=== PATIENT | male | born 1990 | race Caucasian/White ===

== ENCOUNTER 2016-11-19 10:44 | Inpatient (IN) | payer OTHER ==
[~2016-11-19] VITALS: Ht 172.7 cm; Wt 77.6 kg
[2016-11-19] MEDS: NICOTINE 21 MG/24 HR TRANSDERM SCH (09:00)
[2016-11-19] MEDS ORDERED: Flu Vaccine Quadrivalent 60 MCG/0.5 ML IM.VACC ONE (16:20)
[2016-11-19 16:21] VITALS: Ht 172.7 cm; Wt 77.6 kg
[2016-11-19] MEDS ORDERED: TRAZODONE 50 MG TAB PO PRN (16:25)
[2016-11-19] MEDS ORDERED: Ibuprofen 400 MG TAB PO PRN (16:25)
[2016-11-19] MEDS ORDERED: HALOPERIDOL 5 MG/ML VIAL IM PRN (16:25)
[2016-11-19] MEDS ORDERED: ALU/MAG/SIM 30 ML UDC PO PRN (16:25)
[2016-11-19] MEDS ORDERED: ACETAMINOPHEN 325 MG TAB PO PRN (16:25)
[2016-11-19] MEDS ORDERED: LORAZEPAM 2 MG TAB PO PRN (16:25)
[2016-11-19] MEDS ORDERED: DIPHENHYDRAMINE 50 MG/ML VIAL IM PRN (16:25)
[2016-11-19] MEDS ORDERED: DIPHENHYDRAMINE 50 MG CAP PO PRN (16:25)
[2016-11-19] MEDS ORDERED: MAG HYDROX 30 ML UDC PO PRN (16:25)
[2016-11-19] MEDS ORDERED: LORAZEPAM 2 MG/ML VIAL IM PRN (16:25)
[2016-11-19] MEDS ORDERED: HALOPERIDOL 5 MG TAB PO PRN (16:25)
[2016-11-19 20:55] VITALS: BP_SYST 136; RESP 18; TEMP 98.1
[2016-11-20] MEDS: MULTIVITS/MINERALS (THERAGRAN M) TAB PO SCH (10:10)
[2016-11-20] MEDS: BUPROPION SR 100 MG TAB PO SCH (10:14)
[2016-11-20] MEDS: NICOTINE 21 MG/24 HR TRANSDERM SCH (10:15)
[2016-11-20 10:40] VITALS: BP_SYST 122; RESP 16; TEMP 97.5
[2016-11-20 19:00] VITALS: BP_SYST 130; RESP 18; TEMP 97.2
[2016-11-20 22:20] VITALS: BP_SYST 130; RESP 18; TEMP 98.4
[2016-11-21] MEDS: NICOTINE 21 MG/24 HR TRANSDERM SCH (08:17)
[2016-11-21] MEDS: BUPROPION SR 100 MG TAB PO SCH (08:17)
[2016-11-21] MEDS: MULTIVITS/MINERALS (THERAGRAN M) TAB PO SCH (08:17)
[2016-11-21 08:19] VITALS: BP_SYST 119; RESP 16; TEMP 97.6
[2016-11-21] MEDS: hydrOXYzine PAM 50 MG CAP PO PRN ×3 (10:33→23:35)
[2016-11-21] MEDS: VENLAFAXINE XR 75 MG CAP PO SCH (10:33)
[2016-11-21 19:02] VITALS: BP_SYST 131; RESP 16; TEMP 98.9
[2016-11-22] MEDS: BUPROPION SR 100 MG TAB PO SCH (08:07)
[2016-11-22] MEDS: MULTIVITS/MINERALS (THERAGRAN M) TAB PO SCH (08:07)
[2016-11-22] MEDS: NICOTINE 21 MG/24 HR TRANSDERM SCH (08:07)
[2016-11-22] MEDS: VENLAFAXINE XR 75 MG CAP PO SCH (08:07)
[2016-11-22 09:06] VITALS: BP_SYST 121; RESP 16; TEMP 97.8
[2016-11-22] MEDS: hydrOXYzine PAM 50 MG CAP PO PRN (09:06)
[2016-11-22 09:08] VITALS: BP_SYST 121; RESP 16; TEMP 97.8
== END 2016-11-22 13:00 | disposition home or self-care (01) | DRG 881 ==
LOC: ENRESERVTM → ENRESERVDT → ER 10:44 → EMR 15:14 → PSY 15:46
PROVIDERS: ADMIT Psychiatry & Neurology Psychiatry; ATTEND Psychiatry & Neurology Psychiatry
DX: F32.9 Major depressive disorder, single episode, unspecified (principal); Z72.0 Tobacco use
CPT/HCPCS: 36415; 80053; 80307; 80320; 80329; 81003; 84439; 84443; 85025; 85610